=== PATIENT | female | born 1950 | race Caucasian/White ===

== ENCOUNTER 2020-08-14 13:58 | Emergency (ER) | payer OTHER ==
--- OUTSIDE RECORDS SUMMARY | 2020-08-14 14:01 | XMS REPORT | Continuity of Care Document ---
:1950 Author Organization [facility] t Address [address] [place] [address] Care Team Providers Name Role Phone Unavailable Unavailable Unavailable Problems Condition Condition Condition Status Onset Resolution Last Treating Co mments Source Name Details Category Date Date Treatment Clinician Date Essential Essential Problem Active 2020-0 [facility] hypertensi Hypertensi 2-26 da on on 00:00: Medical 00 Group Hypothyroi Hypothyroi Problem Active [facility] dis[facility] Hyperlipid Hyperlipid Problem Active [facility] emia [facility] Tobacco Tobacco Problem Active [facility] smoking Smoking da consumptio Consumptio Me dical n unknown n Unknown Grou p Insomnia Insomnia Problem Active [facility] Chronic Chronic Problem Active [facility] obstructiv Obstructiv da e lung e Lung Medical disease Disease Group Lesion of Lesion of Problem Active [facility] lip Lip [facility] Bladder Bladder Problem Active [facility] muscle Muscle da dysfunctio Dysfunctio Me dical n - n - Group overactive Overactive Vaginitis Vaginitis Problem Active [facility] Chronic Chronic Problem Active [facility] low back Low Back da pain Pain [facility] Pain in Pain in Problem Active [facility] right arm Right Arm [facility] Fatigue Fatigue Problem Active [facility] Abnormal Abnormal Problem Active [facility] weight Weight da loss [facility] Increased Increased Problem Active [facility] frequency Frequency da of of Medical urination Urination Grou p Lower Lower Problem Active [facility] abdominal Abdominal da pain [facility] Serum Serum Problem Active [facility] alkaline Alkaline da phosphatas Phosphatas Me dical e raised e Raised Group Abnormal Abnormal Problem Active [facility] cervical Cervical da Papanicola Papanicola Me dical ou smear ou Smear Group Allergies, Adverse Reactions, Alerts This patient has no known allergies or adverse reactions. Social History Smoking Status Start Date Stop Date Source Heavy Tobacco Smoker [facility] Medications Ordered Filled Start Stop Current Ordering Indication Dosage Frequency Signature Comments Components Source Medication Medication Date Date Medication? Clinician (SIG) Name Name cefuroxime cefuroxime No 1 Q12H cefuroxime [facility] axetil 500 axetil 500 axetil 500 da mg tablet mg tablet mg tablet Medical Take 1 Take 1 Take 1 Group tablet tablet tablet every 12 every 12 every 12 hours by hours by hours by oral route oral route oral route for 7 days. for 7 days. for 7 days. epipen epipen No epipen [facility] 2-selena 0.3 2-selena 0.3 2-selena 0.3 da mg/0.3ml mg/0.3ml mg/0.3ml Med ical soaj soaj soaj Group hydroxyzine hydroxyzine No hydroxyzin [facility] pamoate 50 pamoate 50 e pamoate da mg capsule mg capsule 50 mg Me dical TAKE ONE TAKE ONE capsule Grou p CAPSULE BY CAPSULE BY TAKE ONE MOUTH AT MOUTH AT CAPSULE BY BEDTIME BEDTIME MOUTH AT BEDTIME levothyroxi levothyroxi No levothyrox [facility] ne 100 mcg ne 100 mcg ine 100 da tablet tablet mcg tablet Medic al Group lisinopril/ lisinopril/ No lisinopril [facility] hydrochloro hydrochloro /hydrochlo da thiazide thiazide rothiazide M edical 20-12.5 mg 20-12.5 mg 20-12.5 mg Group tabs tabs tabs naproxen naproxen No naproxen [facility] 500 mg 500 mg 500 mg da tablet tablet tablet Medical Group pravastatin pravastatin No pravastati [facility] 40 mg 40 mg n 40 mg da tablet TAKE tablet TAKE tablet Medical 1 TABLET BY 1 TABLET BY TAKE 1 Group MOUTH EVERY MOUTH EVERY TABLET BY DAY DAY MOUTH EVERY DAY ProAir HFA ProAir HFA No ProAir HFA [facility] 90 90 90 da mcg/actuati mcg/actuati mcg/actuat Medical on aerosol on aerosol ion Shilpi up inhaler inhaler aerosol Inhale 1 Inhale 1 inhaler puff every puff every Inhale 1 6-8 hours 6-8 hours puff every by by 6-8 hours inhalation inhalation by route as route as inhalation directed directed route as for 30 for 30 directed days. days. for 30 days. Symbicort Symbicort No Symbicort [facility] 160 mcg-4.5 160 mcg-4.5 160 d a mcg/actuati mcg/actuati mcg-4.5 Medical on HFA on HFA mcg/actuat Group aerosol aerosol ion HFA inhaler inhaler aerosol INHALE 2 INHALE 2 inhaler PUFFS BY PUFFS BY INHALE 2 MOUTH TWICE MOUTH TWICE PUFFS BY A DAY A DAY MOUTH TWICE A DAY tramadol 50 tramadol 50 No tramadol [facility] mg tablet mg tablet 50 mg da Take 1 Take 1 tablet Medical tablet(s) tablet(s) Take 1 Shilpi up every 6 every 6 tablet(s) hours by hours by every 6 oral route oral route hours by as needed as needed oral route for 30 for 30 as needed days. days. for 30 days. Vesicare 10 Vesicare 10 No Vesicare [facility] mg tablet mg tablet 10 mg da TAKE 1 TAKE 1 tablet Medical TABLET BY TABLET BY TAKE 1 Shilpi up MOUTH EVERY MOUTH EVERY TABLET BY DAY DAY MOUTH EVERY DAY Vital Signs Vital Name Observation Time Observation Value Comments Source BP Diastolic 2019-08-10 00:00:00 80 mm[Hg] [facility] Height 2019-08-10 00:00:00 68 [facility]in_i] [facility] BMI (Body Mass 2019-08-10 00:00:00 21.6 kg/m2 [facility] Index) Group BP Systolic 2019-08-10 00:00:00 146 mm[Hg] [facility] Body Weight 2019-08-10 00:00:00 142 [lb_av] [facility] Procedures Procedure Date / Time Performed Performing Clinician [facility] e bone density 2019-08-10 00:00:00 [facility] De [facility] dical Group MAMMO, screening, 2019-08-10 00:00:00 [facility] bilateral Group Plan of Care Planned Activity Planned Date Details Comments Source Diagnostic Test 2019-08-10 fecal occult Alessandra De Los Santos dical Pending 00:00:00 blood, stool [code Group = fecal occult blood, stool] Diagnostic Test 2019-08-10 pap, LB + HPV Alessandra Magdaleno edical Pending 00:00:00 [code = pap, LB + Group HPV] Diagnostic Test 2019-08-10 culture ([facility] Pending 00:00:00 count), urine Group [code = culture (colony count), urine] Encounters Start End Encounter Admission Attending Care Care Encounter Source Date/Time Date/Time Type Type Clinicians Facility Department ID 2019-08-10 2019-08-10 [facility] [place] - [id number] M travis 00:00:00 00:00:00 [facility]: [address] [place] [address] OBGYN [address], [place] [address] , Ph. [phone] Results This patient has no known results.
[2020-08-14 14:51] LABS: Absolute Lymphocytes (CBC) 3.4 K/uL (0.7-4.9); Basophils % 1.1 % (0-1.3); Hematocrit 41.4 % (36.0-45.0); Lymphocytes % 36.6 % (15.3-44.8); MPV 8.7 fL (7.6-11.3); RBC Red Blood Cell Count 4.46 M/uL (3.86-4.86)
[2020-08-14 14:53] LABS: Protime INR 0.91
--- NOTE | 2020-08-14 15:01 | RAD REPORT ---
EXAM DESCRIPTION: RAD - Chest Single View - 08/14/2020 2:50 pm CLINICAL HISTORY: SOB COMPARISON: None TECHNIQUE: AP portable chest image was obtained 08/14/2020 2:50 pm . FINDINGS: Prominent interstitial pattern present most likely fibrotic change on this baseline study. Component of edema or infiltrate cannot be excluded on a baseline study. No consolidation or mass. H eart and vasculature are normal. No measurable pleural effusion and no pneumothorax. No acute bone fi nding. Could not right clavicle fracture noted. No acute aortic findings suspected. IMPRESSION: No peripheral mass or consolidation. Prominent interstitial pattern present probably chronic fibrosis. This could mask mild edema or infil trate.
[2020-08-14] MEDS ORDERED: LEVALBUTEROL 1.25 MG/3 ML NEB ONE (15:14)
[2020-08-14] MEDS ORDERED: METHYLPREDNISOLONE 125 MG INJ ONE (15:14)
[2020-08-14 15:15] LABS: ALT/SGPT 13 U/L (12-78); AST/SGOT 9 U/L (15-37); Alkaline Phosphatase 167 U/L (45-117); BUN Blood Urea Nitrogen 6 mg/dL (7-18); Bicarbonate 26 mmol/L (21-32); Bilirubin Direct < 0.1 mg/dL (0-0.2); Bilirubin Total 0.2 mg/dL (0.2-1.0); Glucose Level 72 mg/dL (74-106); Magnesium 2.3 mg/dL (1.8-2.4); NT PRO-BNP 276 pg/mL (<125); Protein, Total 6.5 g/dL (6.4-8.2); Sodium Level 142 mmol/L (136-145); Troponin (Emerg Dept Use Only) 0.02 ng/mL (0.0-0.045)
--- NOTE | 2020-08-14 16:15 | RAD REPORT ---
EXAM DESCRIPTION: CT - Chest For Pe Angio - 08/14/2020 3:57 pm CLINICAL HISTORY: SOB COMPARISON: Chest Single View dated 08/14/2020 TECHNIQUE: Dynamically enhanced 3 mm thick images of the chest were obtained during administration o f approximately 150mL Isovue 370 IV contrast. Coronal and oblique MIP reconstruction images were gene rated and reviewed. Exam utilizes a protocol to evaluate the pulmonary arterial tree. All CT scans are performed using dose optimization technique as appropriate and may include automated exposure control or mA/KV adjustment according to patient size. FINDINGS: No pulmonary emboli are identified. Far peripheral branch assessment is more limited due t o the amount of respiratory motion present. The aorta as imaged shows no acute or suspicious finding. No pericardial thickening or effusion. No mass or consolidation. Interstitial pattern is prominent at least in part due to motion. There is atelectasis in each posterior gutter. Interstitial edema or infiltrate cannot be excluded. No pleural effusion or pleural thickening. No mediastinal or hilar suspicious masses. No chest wall masses or abnormal axillary lymphadenopathy. IMPRESSION: No pulmonary emboli identified. Far peripheral branch assessment is limited due to motio n. No focal mass or consolidation. Interstitial pattern is prominent. This could be motion artifact, int erstitial edema, infiltrate or a combination.
[2020-08-14] MEDS ORDERED: MAGNESIUM SULFATE 1 gm IVPB 1 GM/100 ML BAG IV ONE (17:07)
--- NOTE | 2020-08-14 17:27 | ER ---
Nurse's Notes [facility] Name: Africa Jara Age: 70 yrs Sex: Female : 1950 Arrival Date: 08/14/2020 Time: 14:00 Bed 14 Private MD: Diagnosis: Chronic obstructive pulmonary disease with (acute) exacerbation Presentation: 08/14 14:01 Chief complaint: EMS states: SOB WITH COPD. Coronavirus screen: Client presents with at bp least one sign or symptom that may indicate coronavirus-19. Standard/surgical mask placed on the client. Provider contacted for isolation considerations. Ebola Screen: No symptoms or risks identified at this time. Initial Sepsis Screen: Does the patient meet any 2 criteria? HR > 90 bpm. No. Patient's initial sepsis screen is negative. Does the patient have a suspected source of infection? No. Patient's initial sepsis screen is negative. Risk Assessment: Do you want to hurt yourself or someone else? Patient reports no desire to harm self or others. Onset of symptoms was August 14, 2020. 14:01 Method Of Arrival: EMS: [facility] bp 14:01 Acuity: VANESA 3 bp Triage Assessment: 14:04 General: Appears in no apparent distress. comfortable, slender, Behavior is bp cooperative, appropriate for age, anxious. Pain: Denies pain. EENT: No deficits noted. Neuro: No deficits noted. Cardiovascular: Rhythm is sinus tachycardia. Respiratory: Reports shortness of breath Onset: The symptoms/episode began/occurred yesterday, the patient has mild shortness of breath. GI: No signs and/or symptoms were reported involving the gastrointestinal system. : No signs and/or symptoms were reported regarding the genitourinary system. Derm: No deficits noted. Musculoskeletal: No deficits noted. Historical: - Allergies: 14:04 No Known Allergies; bp - Home Meds: 14:04 Unable to obtain [Active]; bp - PMHx: 14:04 COPD; bp - Immunization history:: Adult Immunizations up to date. - Social history:: Smoking status: unknown. Screenin:04 Abuse screen: Denies threats or abuse. Denies injuries from another. Nutritional bp screening: No deficits noted. Tuberculosis screening: No symptoms or risk factors identified. Fall Risk None identified. Assessment: 14:04 General: SEE TRIAGE NOTE. bp 15:00 Reassessment: No changes from previously documented assessment. Patient and/or family bp updated on plan of care and expected duration. Pain level reassessed. Patient is alert, oriented x 3, equal unlabored respirations, skin warm/dry/pink. Cardiovascular: Rhythm is sinus rhythm. Respiratory: Airway is patent Respiratory effort is even, unlabored, Breath sounds are clear bilaterally. 17:01 Reassessment: Patient appears in no apparent distress at this time. No changes from bp previously documented assessment. Patient and/or family updated on plan of care and expected duration. Pain level reassessed. MAG INFUSING. 17:51 Reassessment: Patient appears in no apparent distress at this time. Patient is alert, ca1 oriented x 3, equal unlabored respirations, skin warm/dry/pink. Patient states feeling better. Patient states symptoms have improved. Vital Signs: 14:01 BP 120 / 79; Pulse 105; Resp 17; Temp 98; Pulse Ox 97% on R/A; bp 14:09 BP 104 / 50; Pulse 97; Resp 19; Pulse Ox 97% on R/A; bp 15:37 BP 99 / 56; Pulse 97; Resp 19; Pulse Ox 97% ; bp 17:01 BP 97 / 62; Pulse 105; Resp 24; Pulse Ox 96% ; bp 17:51 BP 103 / 71; Pulse 99; Resp 19 S; Pulse Ox 98% on R/A; ca1 ED Course: 14:00 Patient arrived in ED. bp 14:03 Triage completed. bp 14:03 Orlando Avendaño PA is PHCP. [facility] 14:03 Darnell Ayala MD is Attending Physician. [facility] 14:04 Patient has correct armband on for positive identification. Bed in low position. Call bp light in reach. Side rails up X2. 14:04 Maintain EMS IV. Dressing intact. Good blood return noted. Site clean \T\ dry. Gauge \T\ bp site: 20 GAUGE R AC. 14:08 Arm band placed on. bp 14:11 Matt Woodson, SERENA is Primary Nurse. bp 14:19 Warm blanket given. services clerk on. Pulse ox on. NIBP on. 5 14:19 EKG done, by ED staff, reviewed by Darnell Ayala MD. 5 14:49 XRAY Chest (1 view) In Process Unspecified. EDMS 15:57 Chest For PE Angio CT In Process Unspecified. EDMS 17:51 No provider procedures requiring assistance completed. IV discontinued, intact, ca1 bleeding controlled, No redness/swelling at site. Pressure dressing applied. Administered Medications: 14:50 Drug: SOLU-Medrol 125 mg Route: IVP; Site: right forearm; bp 16:33 Follow up: Response: No adverse reaction bp 14:50 Drug: Xopenex (3) 1.25 mg Route: Inhalation; bp 16:40 Drug: Magnesium Sulfate 1 grams Route: IVPB; Infused Over: 1 hrs; Site: right bp antecubital; 17:45 Follow up: Response: No adverse reaction; IV Status: Completed infusion; IV Intake: ca1 100ml Intake: 17:45 IV: 100ml; Total: 100ml. ca1 Outcome: 17:27 Discharge ordered by . jmm 17:51 Discharged to home ambulatory, with family. ca1 17:51 Condition: improved 17:51 Discharge instructions given to patient, Instructed on discharge instructions, follow up and referral plans. medication usage, Demonstrated understanding of instructions, follow-up care, medications, Prescriptions given X 3. 17:52 Patient left the ED. ca1 Signatures: Dispatcher [employer] EDMS Orlando Avendaño PA PA jmm Martinez, Maria mh5 Matt Woodson, RN RN Deepali Wesley RN RN ca1
--- NOTE | 2020-08-14 17:28 | EDPHYS ---
Physician Documentation [facility] Name: Africa Jara Age: 70 yrs Sex: Female : 1950 Arrival Date: 08/14/2020 Time: 14:00 Bed 14 Private MD: ED Physician Darnell Ayala HPI: 08/14 14:13 This 70 yrs old Female presents to ER via EMS with complaints of Shortness Of jmm Breath. 14:13 The patient has shortness of breath at rest. Onset: The symptoms/episode began/occurred jmm gradually, 2 day(s) ago. Duration: The symptoms are continuous. The patient's shortness of breath is aggravated by nothing, is alleviated by nothing. Associated signs and symptoms: Pertinent positives: non-productive cough, Pertinent negatives: chest pain, fever. This is a 70 year old female with a history of COPD that presents to the ED with complaints of ongoing SOB she attributes to COPD. Her home inhalers have been ineffective. Denies fever, chest pain.. Historical: - Allergies: 14:04 No Known Allergies; bp - Home Meds: 14:04 Unable to obtain [Active]; bp - PMHx: 14:04 COPD; bp - Immunization history:: Adult Immunizations up to date. - Social history:: Smoking status: unknown. ROS: 14:13 Constitutional: Negative for fever, chills, and weight loss, Cardiovascular: Negative jmm for chest pain, palpitations, and edema. 14:13 Respiratory: Positive for shortness of breath. 14:13 All other systems are negative. Exam: 14:13 Constitutional: This is a well developed, well nourished patient who is awake, alert, jmm and in no acute distress. Head/Face: atraumatic. Eyes: EOMI, no conjunctival erythema appreciated ENT: Moist Mucus Membranes Neck: Trachea midline, Supple Chest/axilla: Normal chest wall appearance and motion. 14:13 Abdomen/GI: Non distended, soft Back: Normal ROM Skin: General appearance color normal MS/ Extremity: Moves all extremities, no obvious deformities appreciated, no edema noted to the lower extremities Neuro: Awake and alert, normal gait 14:13 Cardiovascular: Rate: normal, Rhythm: regular. 14:13 Respiratory: the patient does not display signs of respiratory distress, Respirations: normal, Breath sounds: wheezing: that is mild, is scattered. Vital Signs: 14:01 BP 120 / 79; Pulse 105; Resp 17; Temp 98; Pulse Ox 97% on R/A; bp 14:09 BP 104 / 50; Pulse 97; Resp 19; Pulse Ox 97% on R/A; bp 15:37 BP 99 / 56; Pulse 97; Resp 19; Pulse Ox 97% ; bp 17:01 BP 97 / 62; Pulse 105; Resp 24; Pulse Ox 96% ; bp 17:51 BP 103 / 71; Pulse 99; Resp 19 S; Pulse Ox 98% on R/A; ca1 MDM: 14:28 Patient medically screened. [facility] 17:24 Data reviewed: vital signs, nurses notes. Counseling: I had a detailed discussion with melissa the patient and/or guardian regarding: the historical points, exam findings, and any diagnostic results supporting the discharge/admit diagnosis, lab results, radiology results, the need for outpatient follow up, to return to the emergency department if symptoms worsen or persist or if there are any questions or concerns that arise at home. ED course: Patient states feeling much better. Labs unremarkable. Patient is advised to follow up with pcp and otherwise given strict return precautions. Patient understood and agrees with the plan of care. . 08/14 14:13 Order name: Basic Metabolic Panel; Complete Time: 15:19 [facility] 08/14 14:13 Order name: CBC with Diff; Complete Time: 15:19 [facility] 08/14 14:13 Order name: LFT's; Complete Time: 15:19 [facility] 08/14 14:13 Order name: Magnesium; Complete Time: 15:19 [facility] 08/14 14:13 Order name: NT PRO-BNP; Complete Time: 15:19 [facility] 08/14 14:13 Order name: PT-INR; Complete Time: 15:19 [facility] 08/14 14:13 Order name: Troponin (emerg Dept Use Only); Complete Time: 15:19 [facility] 08/14 14:13 Order name: XRAY Chest (1 view); Complete Time: 15:19 [facility] 08/14 14:13 Order name: EKG; Complete Time: 14:13 [facility] 08/14 14:13 Order name: Cardiac monitoring; Complete Time: 14:16 [facility] 08/14 15:20 Order name: Chest For PE Angio CT; Complete Time: 16:22 [facility] 08/14 14:13 Order name: EKG - Nurse/Tech; Complete Time: 14:19 [facility] 08/14 14:13 Order name: IV Saline Lock; Complete Time: 15:13 [facility] 08/14 14:13 Order name: Labs collected and sent; Complete Time: 15:13 [facility] 08/14 14:13 Order name: O2 Per Protocol; Complete Time: 15:13 [facility] 08/14 14:13 Order name: O2 Sat Monitoring; Complete Time: 15:13 [facility] Administered Medications: 14:50 Drug: SOLU-Medrol 125 mg Route: IVP; Site: right forearm; bp 16:33 Follow up: Response: No adverse reaction bp 14:50 Drug: Xopenex (3) 1.25 mg Route: Inhalation; bp 16:40 Drug: Magnesium Sulfate 1 grams Route: IVPB; Infused Over: 1 hrs; Site: right bp antecubital; 17:45 Follow up: Response: No adverse reaction; IV Status: Completed infusion; IV Intake: ca1 100ml Disposition: 18:36 Co-signature as Attending Physician, Darnell Ayala MD. rn Disposition: 08/14/20 17:27 Discharged to Home. Impression: Chronic obstructive pulmonary disease with (acute) exacerbation. - Condition is Stable. - Discharge Instructions: Chronic Obstructive Pulmonary Disease Exacerbation. - Prescriptions for Prednisone 20 mg Oral Tablet - take 3 tablet by ORAL route once daily for 5 days; 15 tablet. Zithromax Z- Tristin 250 mg Oral Tablet - take 1 tablet by ORAL route as directed for 5 days Day 1 - take two (2) tablets one time. Day 2, 3, 4 , 5 take one (1) tablet once daily.; 6 tablet. Albuterol Sulfate 90 mcg/actuation - inhale 1-2 puff by INHALATION route every 4-6 hours; 1 Inhaler. - Medication Reconciliation Form, Thank You Letter, Antibiotic Education, Prescription Opioid Use form. - Follow up: Private Physician; When: 2 - 3 days; Reason: Recheck today's complaints, Continuance of care, Re-evaluation by your physician. Signatures: Dispatcher [employer] EDOrlando Gabriel PA PA [facility] Darnell Ayala MD MD rn Peltier, Brian RN RN Deepali Wesley RN RN ca1 Corrections: (The following items were deleted from the chart) 17:52 17:27 08/14/2020 17:27 Discharged to Home. Impression: Chronic obstructive pulmonary ca1 disease with (acute) exacerbation. Condition is Stable. Forms are Medication Reconciliation Form, Thank You Letter, Antibiotic Education, Prescription Opioid Use. Follow up: Private Physician; When: 2 - 3 days; Reason: Recheck today's complaints, Continuance of care, Re-evaluation by your physician. melissa
[2020-08-14 19:19] VITALS: TEMP 98
[2020-08-14 19:24] VITALS: BP 103/71; O2SAT 98
--- NOTE | 2020-08-15 22:28 | EKG ---
Test Date: 2020-08-14 Test Time: 14:27:04 Grinding Mill Operator: YONI MEASUREMENT RESULTS: Intervals: Rate: 87 LA: 152 QRSD: 78 QT: 380 QTc: 457 [place]: P: 59 LA: 152 QRS: 68 T: 56 INTERPRETIVE STATEMENTS: Normal sinus rhythm Normal ECG Compared to ECG 12/12/1997 07:06:00 T-wave abnormality no longer present Electronically Signed On 08-15-20 22:25:37 SENIOR SVP by Juan Crum
== END 2020-08-14 17:52 | disposition home or self-care (01) ==
LOC: ER 13:58
DX: J44.1 Chronic obstructive pulmonary disease with (acute) exacerbation (principal)
CPT/HCPCS: 96365; 93005; 85025; 80048; 36415; 83735; 85610; 80076; 84484; 83880; 71275; 71045; 96375; 99285; Q9967; J3475; J2930

== ENCOUNTER 2022-06-25 22:17 | Observation (INO) | payer OTHER ==
--- OUTSIDE RECORDS SUMMARY | 2022-06-25 22:32 | XMS REPORT | Continuity of Care Document ---
:1950 Author Organization [facility] t Address [address] [place] [address] [address]. [address] [place] [address] Care Team Providers Name Role Phone JAIME Attending Clinician Unavailable Timoteo Attending Clinician Unavailable Erin Attending Clinician Unavailable JAIME Admitting Clinician Unavailable Timoteo Admitting Clinician Unavailable Erin Admitting Clinician Unavailable Payers Payer Name Policy Type Policy Number Effective Date Expiration Date Brandyn VELASQUEZ (MEDICARE [id number] 2019 REPLACEMENT HMO) 00:00:00 [place] [id number] [place] [facility] [id number] 2013 [facility] 00:00:00 (MEDICAID HMO) [place]: [id number] 2017 [employer] 00:00:00 Problems Condition Condition Condition Status Onset Resolution Last Treating Co mments Source Name Details Category Date Date Treatment Clinician Date Essential Essential Problem Active [facility] hypertensi Hypertensi 2-26 da on [...] Date Stop Date Source Heavy Tobacco Smoker [facility] Medications Ordered Filled Start Stop Current Ordering Indication Dosage Frequency Signature Comments Components Source Medication Medication Date Date Medication? Clinician (SIG) Name Name nitrofurant nitrofurant No nitrofuran [place] oin oin toin da monohydrate monohydrate monohydrat Medical /macrocryst /macrocryst e/macrocry Group als 100 mg als 100 mg stals 100 capsule capsule mg capsule TAKE 1 TAKE 1 TAKE 1 CAPSULE BY CAPSULE BY CAPSULE BY MOUTH EVERY MOUTH EVERY MOUTH 12 HOURS 12 HOURS EVERY 12 FOR 7 DAYS FOR 7 DAYS HOURS FOR 7 DAYS pravastatin pravastatin No pravastati [facility] 40 mg 40 mg n 40 mg da tablet TAKE tablet TAKE tablet Medical 1 TABLET BY 1 TABLET BY TAKE 1 Group MOUTH EVERY MOUTH EVERY TABLET BY DAY DAY MOUTH EVERY DAY sertraline sertraline No sertraline [place] 25 mg 25 mg 25 mg da tablet TAKE tablet TAKE tablet Medical 1 TABLET BY 1 TABLET BY TAKE 1 Group MOUTH EVERY MOUTH EVERY TABLET BY DAY DAY MOUTH EVERY DAY Symbicort Symbicort No Symbicort [place] 160 mcg-4.5 [...] mg tablet mg tablet 50 mg da TAKE 1 TAKE 1 tablet Medical TABLET BY TABLET BY TAKE 1 Shilpi up MOUTH EVERY MOUTH EVERY TABLET BY 6 HOURS 6 HOURS MOUTH NEEDED FOR NEEDED FOR EVERY 6 PAIN PAIN HOURS NEEDED FOR PAIN albuterol albuterol No albuterol [place] sulfate HFA sulfate HFA sulfate da 90 90 HFA 90 Medical mcg/actuati mcg/actuati mcg/actuat Group on aerosol on aerosol ion inhaler inhaler aerosol INHALE 1 2 INHALE 1 2 inhaler PUFFS BY PUFFS BY INHALE 1 2 MOUTH EVERY MOUTH EVERY PUFFS BY 4 6 HOURS 4 6 HOURS MOUTH EVERY 4 6 HOURS doxepin 10 doxepin 10 No doxepin 10 [facility] mg capsule mg capsule mg capsule da TAKE 1 TAKE 1 TAKE 1 Medical CAPSULE BY CAPSULE BY CAPSULE BY Group MOUTH MOUTH MOUTH EVERYDAY AT EVERYDAY AT EVERYDAY BEDTIME BEDTIME AT BEDTIME epipen epipen No epipen [facility] 2-selena 0.3 2-selena 0.3 2-selena 0.3 da mg/0.3ml mg/0.3ml mg/0.3ml Med ical soaj soaj soaj Group ergocalcife ergocalcife No ergocalcif [place] rol rol cindi da (vitamin (vitamin (vitamin Med ical D2) 1,250 D2) 1,250 D2) 1,250 Group mcg (50,000 mcg (50,000 mcg unit) unit) (50,000 capsule capsule unit) TAKE 1 TAKE 1 capsule CAPSULE BY CAPSULE BY TAKE 1 MOUTH ONE MOUTH ONE CAPSULE BY TIME PER TIME PER MOUTH ONE WEEK WEEK TIME PER WEEK levothyroxi levothyroxi No levothyrox [place] ne 150 mcg ne 150 mcg ine 150 da tablet TAKE tablet TAKE mcg tablet Medical 1 TABLET BY 1 TABLET BY TAKE 1 Group MOUTH EVERY MOUTH EVERY TABLET BY DAY DAY MOUTH EVERY DAY loratadine loratadine No loratadine [facility] 10 mg 10 mg 10 mg da tablet TAKE tablet TAKE tablet Medical 1 TABLET BY 1 TABLET BY TAKE 1 Group MOUTH EVERY MOUTH EVERY TABLET BY DAY DAY MOUTH EVERY DAY Vital Signs Vital Name Observation Time Observation Value Comments Source BP Diastolic 2021-01-21 00:00:00 78 mm[Hg] [facility] Height 2021-01-21 00:00:00 68 [in_i] [facility] BMI (Body Mass 2021-01-21 00:00:00 21.6 kg/m2 [facility] Medical Index) Group BP Systolic 2021-01-21 00:00:00 136 mm[Hg] [facility] Body Weight 2021-01-21 00:00:00 141.8 [lb_av] [facility] BP Diastolic 2019-08-10 00:00:00 80 mm[Hg] [facility] Height 2019-08-10 00:00:00 68 [in_i] [facility] BMI (Body Mass 2019-08-10 00:00:00 21.6 kg/m2 [facility] Medical Index) Group BP Systolic 2019-08-10 00:00:00 146 mm[Hg] [facility] Body Weight 2019-08-10 00:00:00 142 [lb_av] [facility] Procedures Procedure Date / Time Performed Performing Clinician Sour e bone density 2019-08-10 00:00:00 [facility] MAMMO, screening, 2019-08-10 00:00:00 [facility] Plan of Care Planned Activity Planned Date Details Comments Source Instructions [facility] Encounters Start End Encounter Admission Attending Care Care Encounter Source Date/Time Date/Time Type Type Clinicians Facility Department ID 2021-12-27 2021-12-27 Outpatient [facility] 757 [facility] 03:10:00 03:10:00 HN 0715 [facility] 2021-01-21 2021-01-21 Outpatient Rut[facility]L [facility] 3316 [place] 03:37:00 03:37:00 0809 [facility] 2021-01-21 2021-01-21 Outpatient [facility] 3316 [place] 03:37:00 03:37:00 0810 [facility] 2021-01-21 2021-01-21 [facility] [place] - [id number] M at[facility] 00:00:00 00:00:00 DO Rasheed: [facility] [address] [facility] [address] [address] , Ph. [phone] 2021-01-09 2021-01-09 Outpatient [facility]L [facility] 3316 [place] 03:28:00 03:28:00 0728 [facility] 2021-01-09 2021-01-09 Outpatient [facility]L [facility] 3316 [place] 03:28:00 03:28:00 0806 [facility] Group 2020-05-02 2020-05-02 Outpatient [facility]L [facility] 3316 [place] 02:43:00 02:43:00 1118 [facility] 2019-08-11 2019-08-11 Outpatient [facility]L [facility] 3316 [place] 07:30:00 07:30:00 0227 [facility] 2019-08-11 2019-08-11 Outpatient [facility] 3316 [place] 07:30:00 07:30:00 0331 [facility] 2019-08-11 2019-08-11 Outpatient [facility]L [facility] 3316 [place] 07:30:00 07:30:00 0401 [facility] 2019-08-10 2019-08-10 Outpatient [facility]L [facility] 3316 [place] 04:36:00 04:36:00 0226 [facility] 2019-08-10 2019-08-10 [place] MM [place] - [id number] M at[facility] 00:00:00 00:00:00 Shahram Sol MD: [address] [place] [address] OBGYN [address] [address] , Ph. [phone] 2018-01-25 2018-01-25 Outpatient Brown_R [facility] [id number] [place] 11:14:00 11:14:00 0225 [facility] Results Test Description Test Time Test Comments Results Result Comments Source CBC W Auto Differential panel - Blood 2021-01-03 07:18:00 Test Item Value Reference Range Interpretation Comme nts white blood count (test code = white blood count) 19.8 K/uL 4.0- 11.5 H red blood count (test code = red blood count) 3.81 M/uL 3.80-5.2 0 hemoglobin (test code = hemoglobin) 11.1 g/dL 10.5-15.7 hematocrit (test code = hematocrit) 35.2 % 34.0-50.0 MCV [Entitic volume] (test code = 41266-1) 92.4 fL 86-100 mean corpuscular hemoglobin (test code = mean corpuscular 29.1 pg 26.2-33.4 hemoglobin) mean corpuscular HGB conc (test code = mean corpuscular HGB 31.5 g/ dL 30-34 conc) red cell distribution width (test code = red cell 13.4 % 12.0 -15.5 distribution width) platelet count (test code = platelet count) 237 K/uL 165-450 mean platelet volume (test code = mean platelet volume) 10.6 fL 9.4-12.6 Segmented neutrophils/100 leukocytes in Blood (test code = 77.4 % 44.4-80.1 45927-2) Immature granulocytes [#/volume] in Blood (test code = 0.1 K/uL 0.0-0.03 H 68982-9) lymphocyte% (test code = lymphocyte%) 14.5 % 10.0-50.0 mono % (test code = mono %) 7.1 % 3.6-12.0 eos % (test code = eos %) 0.2 % 0.0-5.4 Basophils/100 leukocytes in Unspecified specimen (test code 0.2 % 0.1-1.2 = 46743-8) Band form neutrophils [#/volume] in Blood (test code = 15.30 K/uL 1.56-6.13 H 78038-2) Lymphocytes [#/volume] in Unspecified specimen by Automated 2.9 K/u L 1.18-3.74 count (test code = 21946-4) mono # (test code = mono #) 1.41 K/uL 0.24-0.86 H eos # (test code = eos #) 0.04 K/uL 0.04-0.36 basophil # (test code = basophil #) 0.03 K/uL 0.01-0.08 NRBC% (test code = NRBC%) 0 /100 WBC 0-0.2 NRBC# (test code = NRBC#) 0 K/uL [facility], method unspecified - [id number] 07:18:00NeutrophilsBandLymphocyteAtypical LymphMonocyteEosinophilBasophilMetamyelocyteMyelocytePromyelocyteBlastsNucleated Red Blood CellAbs Neutrophil Count (Man)Abs Lymph Count (Man)Abs Monocyte Count (Man)Abs Eosinophil Count (Man)Abs Basophil Count (Man)Platelet EstimatePlatelet MorphologyHypochromasiaPoik ilocytosisAnisocytosisMicrocytosisMacrocytosisTarget CellsToxic GranulationSmudge CellsGiant PlateletsMaTrace Regional HospitalBasic metabolic 2000 panel - Serum or [id number] 07:18:00 Test Item Value Reference Range Interpretation Comments Glucose [Mass/volume] in Serum or 100 mg/dL 82-115 Plasma (test code = 2345-7) Urea nitrogen [Mass/volume] in 9 mg/dL 8-23 Serum or Plasma (test code = 3094-0) osmolality calculated,serum (test 265 mOsm/kg 280-300 L code = osmolality calculated,serum) creatinine (test code = 0.6 mg/dL 0.50-0.90 creatinine) glomerular filtration rate (test >60.00 code = glomerular filtration rate) Urea nitrogen/Creatinine [Mass 15.0 12-20 Ratio] in Serum or Plasma (test code = 3097-3) sodium level (test code = sodium 133 mmol/L 135-145 L level) potassium level (test code = 3.6 mmol/L 3.5-5.2 potassium level) chloride level (test code = 105 mmol/L 98-108 chloride level) CO2 (test code = CO2) 22 mmol/L 21-32 anion gap (test code = anion gap) 9.6 mEq/L 12-20 L calcium level (test code = 8.5 mg/dL 8.8-10.2 L calcium level) [facility] SystemHepatic function 2000 panel - Serum or [id number] 07:18:00 Test Item Value Reference Range Interpretation Comments total protein (test code = total 5.6 g/dL 6.6-8.7 L protein) albumin (test code = albumin) 2.6 g/dL 3.5-5.2 L bilirubin,total (test code = 0.5 mg/dL 0.0-1.2 bilirubin,total) Bilirubin.direct [Mass/volume] in <0.20 0.0-0.3 Serum or Plasma (test code = 1968-7) AST/SGOT (test code = AST/SGOT) 38 U/L 15-32 H Alanine aminotransferase [Enzymatic 21 U/L 0-33 activity/volume] in Serum or Plasma (test code = 1742-6) Alkaline phosphatase [Enzymatic 130 U/L 35-105 H activity/volume] in Serum or Plasma (test code = 6768-6) [facility] [id number] 09:53:00Results [facility] SystemBacteria identified in Sputum by [id number] 09:10:00Bacteria [facility]xx [facility], [id number] 09:10:00 Test Item Value Reference Range Interpretation Comments Gentamicin [Susceptibility] by Minimum <2 inhibitory concentration (FREDI) (test code = 267-5) Ampicillin [Susceptibility] by Minimum >16 inhibitory concentration (FREDI) (test code = 28-1) ceFAZolin [Susceptibility] by Minimum <2 inhibitory concentration (FREDI) (test code = 76-0) Trimethoprim+Sulfamethoxazole =2/38 [Susceptibility] by Minimum inhibitory concentration (FREDI) (test code = 516-5) Tetracycline [Susceptibility] by <4 Minimum inhibitory concentration (FREDI) (test code = 496-0) Amoxicillin+Clavulanate =8/4 [Susceptibility] by Minimum inhibitory concentration (FREDI) (test code = 20-8) Tobramycin [Susceptibility] by Minimum <4 inhibitory concentration (FREDI) (test code = 508-2) Nitrofurantoin [Susceptibility] by <32 Minimum inhibitory concentration (FREDI) (test code = 363-2) Cefotaxime [Susceptibility] by Minimum <2 inhibitory concentration (FREDI) (test code = 108-1) Cefepime [Susceptibility] by Minimum <8 inhibitory concentration (FREDI) (test code = 6644-9) levoFLOXacin [Susceptibility] by <2 Minimum inhibitory concentration (FREDI) (test code = 56106-2) Piperacillin+Tazobactam <16 [Susceptibility] by Minimum inhibitory concentration (FREDI) (test code = 412-7) cefTAZidime [Susceptibility] by Minimum <1 inhibitory concentration (FREDI) (test code = 133-9) cefTRIAXone [Susceptibility] by Minimum <1 inhibitory concentration (FREDI) (test code = 141-2) Ciprofloxacin [Susceptibility] by <1 Minimum inhibitory concentration (FREDI) (test code = 185-9) Imipenem [Susceptibility] by Minimum <1 inhibitory concentration (FREDI) (test code = 279-0) Ampicillin+Sulbactam [Susceptibility] =8/4 by Minimum inhibitory concentration (FREDI) (test code = 32-3) Ertapenem [Susceptibility] by Minimum <0.5 inhibitory concentration (FREDI) (test code = 27615-3) Aztreonam [Susceptibility] by Minimum <4 inhibitory concentration (FREDI) (test code = 44-8) Cefuroxime [Susceptibility] by Minimum <4 inhibitory concentration (FREDI) (test code = 95395-7) [facility] W Auto Differential panel - [id number] 07:11:00 Test Item Value Reference Range Interpretation Comments white blood count (test 22.2 K/uL 4.0-11.5 code = white blood count) red blood count (test code 4.25 M/uL 3.80-5.20 = red blood count) hemoglobin (test code = 12.5 g/dL 10.5-15.7 hemoglobin) hematocrit (test code = 38.8 % 34.0-50.0 hematocrit) MCV [Entitic volume] (test 91.3 fL 86-100 code = 78005-1) mean corpuscular hemoglobin 29.4 pg 26.2-33.4 (test code = mean corpuscular hemoglobin) mean corpuscular HGB conc 32.2 g/dL 30-34 (test code = mean corpuscular HGB conc) red cell distribution width 13.3 % 12.0-15.5 (test code = red cell distribution width) platelet count (test code = 252 K/uL 165-450 platelet count) mean platelet volume (test 10.0 fL 9.4-12.6 code = mean platelet volume) Segmented neutrophils/100 77.6 % 44.4-80.1 leukocytes in Blood (test code = 28423-2) Immature granulocytes 0.2 K/uL 0.0-0.03 H [#/volume] in Blood (test code = 59489-7) lymphocyte% (test code = 12.4 % 10.0-50.0 lymphocyte%) mono % (test code = mono %) 8.9 % 3.6-12.0 eos % (test code = eos %) 0.1 % 0.0-5.4 Basophils/100 leukocytes in 0.3 % 0.1-1.2 Unspecified specimen (test code = 97547-7) Band form neutrophils 17.21 K/uL 1.56-6.13 H [#/volume] in Blood (test code = 31789-0) Lymphocytes [#/volume] in 2.8 K/uL 1.18-3.74 Unspecified specimen by Automated count (test code = 89292-9) mono # (test code = mono #) 1.98 K/uL 0.24-0.86 H eos # (test code = eos #) 0.02 K/uL 0.04-0.36 L basophil # (test code = 0.06 K/uL 0.01-0.08 basophil #) NRBC% (test code = NRBC%) 0 /100 WBC 0-0.2 NRBC# (test code = NRBC#) 0 K/uL Platelet morphology finding normal RBC morph. normal RBC. [Identifier] in Blood (test code = 83870-9) [facility] SystemDifferent[facility] panel, method unspecified - [id number] 07:11:00 Test Item Value Reference Range Interpretation Comments Neutrophils [#/volume] in Blood by 82 % 37.0-80.0 H Automated count (test code = 751-8) Band form neutrophils/100 2 % 0-3 leukocytes in Blood by Manual count (test code = 764-1) lymphocyte (test code = 12 % 10-50 lymphocyte) atypical lymph (test code = 0 % atypical lymph) Monocytes [#/volume] in Blood by 4 % 0-12 Manual count (test code = 743-5) eosinophil (test code = 0 % 0-7 eosinophil) Basophils/100 leukocytes in 0 % 0-3 Unspecified specimen by Manual count (test code = 38281-2) metamyelocyte (test code = metamyelocyte) myelocyte (test code = myelocyte) promyelocyte (test code = promyelocyte) blasts (test code = blasts) nucleated red blood cell (test code = nucleated red blood cell) abs neutrophil count (man) (test 18.60 K/uL 1.56-6.13 H code = abs neutrophil count (man)) abs lymph count (man) (test code = 2.60 K/uL 1.32-3.57 abs lymph count (man)) abs monocyte count (man) (test 0.80 K/uL 0.24-0.86 code = abs monocyte count (man)) abs eosinophil count (man) (test 0.00 K/uL 0.04-0.36 L code = abs eosinophil count (man)) abs basophil count (man) (test 0.00 K/uL 0.01-0.08 L code = abs basophil count (man)) Platelets [#/volume] in Blood by adequate normal Automated count (test code = 777-3) poikilocytosis (test code = poikilocytosis) Anisocytosis [Presence] in Blood (test code = 72783-7) Macrocytes [Presence] in Blood (test code = 57683-5) Toxic granules [Presence] in Blood by Light microscopy (test code = 803-7) Smudge cells [Presence] in Blood by Light microscopy (test code = 7798-2) Giant platelets [Presence] in Blood by Light microscopy (test code = 5908-9) [facility] metabolic 2000 panel - Serum or [id number] 07:11:00 Test Item Value Reference Range Interpretation Comments Glucose [Mass/volume] in Serum or 101 mg/dL 82-115 Plasma (test code = 2345-7) Urea nitrogen [Mass/volume] in 8 mg/dL 8-23 Serum or Plasma (test code = 3094-0) osmolality calculated,serum (test 270 mOsm/kg 280-300 L code = osmolality calculated,serum) creatinine (test code = 0.7 mg/dL 0.50-0.90 creatinine) glomerular filtration rate (test >60.00 code = glomerular filtration rate) Urea nitrogen/Creatinine [Mass 11.4 12-20 L Ratio] in Serum or Plasma (test code = 3097-3) sodium level (test code = sodium 136 mmol/L 135-145 level) potassium level (test code = 4.2 mmol/L 3.5-5.2 potassium level) chloride level (test code = 106 mmol/L 98-108 chloride level) CO2 (test code = CO2) 21 mmol/L 21-32 anion gap (test code = anion gap) 13.2 mEq/L 12-20 calcium level (test code = 8.5 mg/dL 8.8-10.2 L calcium level) [facility] function 2000 panel - Serum or [id number] 07:11:00 Test Item Value Reference Range Interpretation Comments total protein (test code = total 5.7 g/dL 6.6-8.7 L protein) albumin (test code = albumin) 2.9 g/dL 3.5-5.2 L bilirubin,total (test code = 0.8 mg/dL 0.0-1.2 bilirubin,total) Bilirubin.direct [Mass/volume] in 0.28 mg/dL 0.0-0.3 Serum or Plasma (test code = 1968-7) AST/SGOT (test code = AST/SGOT) 14 U/L 15-32 L Alanine aminotransferase 6 U/L 0-33 [Enzymatic activity/volume] in Serum or Plasma (test code = 1742-6) Alkaline phosphatase [Enzymatic 138 U/L 35-105 H activity/volume] in Serum or Plasma (test code = 6768-6) [facility] SystemUrinalysis complete panel - [id number] 09:56:00 Test Item Value Reference Range Interpretation Comments Color of Urine by Auto (test yellow code = 86499-6) Appearance of Urine (test code clear clear = 5767-9) Glucose [Presence] in Urine by negative negative Automated test strip (test code = 16700-9) Bilirubin.total [Mass/volume] negative negative in Urine (test code = 1977-) Ketones [Mass/volume] in Urine =2 negative H by Automated test strip (test code = 25373-1) Specific gravity of Urine by 1.029 1.003-1.030 Automated test strip (test code = 21897-4) blood urine (test code = blood negative negative urine) pH of Urine (test code = 5.500 5-9 2756-5) protein urine (UA) (test code = trace negative protein urine (UA)) Urobilinogen [Presence] in normal 0.2-1.0 Urine (test code = 70140-1) Nitrite [Presence] in Urine by negative negative Test strip (test code = 5802-4) Leukocyte esterase [Presence] negative negative in Urine by Automated test strip (test code = 24360-8) Erythrocytes [#/volume] in =1-5 0-5 Urine by Automated count (test code = 798-9) Leukocytes [#/area] in Urine =1-5 0-5 sediment by Automated count (test code = 85409-3) Epithelial cells [Presence] in =1-5 0-5 Urine sediment by Light microscopy (test code = 66234-0) Bacteria identified in Urine by none detected none detect Culture (test code = 630-4) Casts [#/area] in Urine =2-5 none detect sediment by Automated count (test code = 28563-9) urine culture added? (test code no = urine culture added?) [facility] W Auto Differential panel - [id number] 03:51:00 Test Item Value Reference Range Interpretation Comments white blood count (test code = 18.3 K/uL 4.0-11.5 H white blood count) red blood count (test code = red 4.62 M/uL 3.80-5.20 blood count) hemoglobin (test code = 13.8 g/dL 10.5-15.7 hemoglobin) hematocrit (test code = 41.8 % 34.0-50.0 hematocrit) MCV [Entitic volume] (test code = 90.5 fL 86-100 98316-2) mean corpuscular hemoglobin (test 29.9 pg 26.2-33.4 code = mean corpuscular hemoglobin) mean corpuscular HGB conc (test 33.0 g/dL 30-34 code = mean corpuscular HGB conc) red cell distribution width (test 13.2 % 12.0-15.5 code = red cell distribution width) platelet count (test code = 279 K/uL 165-450 platelet count) mean platelet volume (test code = 10.0 fL 9.4-12.6 mean platelet volume) Segmented neutrophils/100 74.4 % 44.4-80.1 leukocytes in Blood (test code = 51952-3) Immature granulocytes [#/volume] 0.1 K/uL 0.0-0.03 H in Blood (test code = 48117-4) lymphocyte% (test code = 16.6 % 10.0-50.0 lymphocyte%) mono % (test code = mono %) 8.1 % 3.6-12.0 eos % (test code = eos %) 0.2 % 0.0-5.4 Basophils/100 leukocytes in 0.3 % 0.1-1.2 Unspecified specimen (test code = 68529-6) Band form neutrophils [#/volume] 13.64 K/uL 1.56-6.13 H in Blood (test code = 23293-9) Lymphocytes [#/volume] in 3.1 K/uL 1.18-3.74 Unspecified specimen by Automated count (test code = 18240-9) mono # (test code = mono #) 1.48 K/uL 0.24-0.86 H eos # (test code = eos #) 0.04 K/uL 0.04-0.36 basophil # (test code = basophil 0.05 K/uL 0.01-0.08 #) NRBC% (test code = NRBC%) 0 /100 WBC 0-0.2 NRBC# (test code = NRBC#) 0 K/uL [facility]Different[facility], method unspecified - [id number] 03:51:00NeutrophilsBandLymphocyteAtypical LymphMonocyteEosinophilBasophilMetamyelocyteMyelocytePromyelocyteBlastsNucleated Red Blood CellAbs Neutrophil Count (Man)Abs Lymph Count (Man)Abs Monocyte Count (Man)Abs Eosinophil Count (Man)Abs Basophil Count (Man)Platelet EstimatePlatelet MorphologyPoikilocytosisAnisocytosisMacrocytosisToxic GranulationParkwood [facility] System
[2022-06-25] MEDS ORDERED: METHYLPREDNISOLONE 125 MG INJ ONE (22:53)
[2022-06-25] MEDS ORDERED: LEVALBUTEROL 1.25 MG/3 ML NEB ONE (22:54)
[2022-06-25 23:32] LABS: Absolute Lymphocytes (CBC) 3.6 K/uL (0.7-4.9); Hematocrit 43.8 % (36.0-45.0); Lymphocytes % 32.2 % (15.3-44.8); MPV 9.1 fL (7.6-11.3); RBC Red Blood Cell Count 4.76 M/uL (3.86-4.86)
[2022-06-25 23:43] LABS: Potassium 4.1 mmol/L (3.5-5.1); Troponin High Sensitivity 36.4 pg/mL (<58.9)
[2022-06-26 00:07] LABS: SARS-COV-2 RT PCR NEGATIVE (NEGATIVE)
[2022-06-26 01:27] LABS: Urine Bacteria None Seen /HPF (<20); Urine RBC <5 /HPF (None Seen)
--- NOTE | 2022-06-26 01:50 | EDPHYS ---
Physician Documentation [facility] Name: Africa Jara Age: 71 yrs Sex: Female : 1950 Arrival Date: 06/25/2022 Time: 22:20 Bed 19 Private MD: ED Physician Darnell Ayala HPI: 06/25 22:22 This 71 yrs old Female presents to ER via Unassigned with complaints of sob. rn 22:22 The patient has shortness of breath at rest, with light activity. Onset: The rn symptoms/episode began/occurred 2 hour(s) ago. Duration: The symptoms are continuous, but are steadily getting better. The patient's shortness of breath is alleviated by application of supplemental oxygen. The patient's shortness of breath is alleviated by. Associated signs and symptoms: Pertinent positives: non-productive cough, Pertinent negatives: chest pain, fever, hemoptysis. Severity of symptoms: At their worst the symptoms were moderate in the emergency department the symptoms have improved. The patient has experienced similar episodes in the past. Pt reports sob, began 2 hours prior to arrival, hadn't taken her anxiety medication, feels better after supplemental oxygen at home, no intervention by EMS and feels better. NO chest pain. . Historical: - Allergies: 22:33 No Known Allergies; bb - Home Meds: 22:33 lisinopril hydrochlorthiazide 20-12.5 daily [Active]; tramadol 100 mg Oral tab 1 tab bb every 4 hours [Active]; inhalers [Active]; - PMHx: 22:33 COPD; bb - PSHx: 22:35 Cholecystectomy; bb - Immunization history:: Client reports having NOT received the Covid vaccine. - Social history:: Smoking status: Patient reports the use of cigarette tobacco products. - Family history:: not pertinent. - Hospitalizations: : No recent hospitalization is reported. ROS: 22:22 Constitutional: Negative for fever, chills, and weight loss, Eyes: Negative for injury, rn pain, redness, and discharge, Neck: Negative for injury, pain, and swelling, Cardiovascular: Negative for chest pain, palpitations, and edema, Respiratory: + sob and cough Abdomen/GI: Negative for abdominal pain, nausea, vomiting, diarrhea, and constipation, MS/Extremity: Negative for injury and deformity, Skin: Negative for injury, rash, and discoloration, Neuro: Negative for headache, weakness, numbness, tingling, and seizure. Exam: 22:22 Constitutional: This is a well developed, well nourished patient who is awake, alert, rn and in no acute distress. Head/Face: Normocephalic, atraumatic. Cardiovascular: Regular rate and rhythm . No pulse deficits. Respiratory: Faint wheezing bilaterally. No increased work of breathing, no retractions or nasal flaring. Abdomen/GI: soft, non-tender Skin: Warm, dry MS/ Extremity: Pulses equal, no cyanosis. Neuro: Awake and alert, GCS 15 23:58 ECG was reviewed by the Attending Physician. rn Vital Signs: 22:32 BP 153 / 81; Pulse 91; Resp 36 S; Temp 98(O); Pulse Ox 97% on R/A; Weight 68.04 kg (R); bb Height 5 ft. 7 in. (170.18 cm) (R); 23:22 BP 108 / 63; Pulse 98; Resp 30 S; Pulse Ox 99% on R/A; aa9 22:32 Body Mass Index 23.49 (68.04 kg, 170.18 cm) bb MDM: 22:20 Patient medically screened. rn 23:40 Independent interpretation of the following test(s) in the Emergency Department X-Ray: rn My interpretation is CXR neg for pneumonia/pneumothorax. . 06/26 01:42 Differential diagnosis: Anemia Anxiety Reaction Bronchitis Chronic Obstructive rn Pulmonary Disease Myocardial Infarction pneumonia, Pneumothorax pulmonary edema, Pulmonary Embolism reactive airway disease. Data reviewed: vital signs, nurses notes. 01:43 Data reviewed: lab test result(s), EKG, radiologic studies, CT scan, plain films, and rn as a result, I will admit patient. Management of patient was discussed with the following: Hospitalist: Discussed case with hospitalist and will obs for further care. . Care significantly affected by the following chronic conditions: Chronic Obstructive Pulmonary Disease. Counseling: I had a detailed discussion with the patient and/or guardian regarding: the historical points, exam findings, and any diagnostic results supporting the discharge/admit diagnosis, lab results, radiology results, the need for further work-up and treatment in the hospital. Response to treatment: the patient's symptoms have mildly improved after treatment, and as a result, I will admit patient. ED course: Pt reports some improvement in breathing, but still tachypneic at 30 breaths/minute, oxygen dipped to 89% on RA, patient not on oxygen at home, only has nebulizer. CT PE neg. Discussed case with hospitalist and will obs for further care. . 06/25 22:21 Order name: BMP; Complete Time: 23:54 rn 06/25 22:21 Order name: Blood Culture Adult (2) rn 06/25 22:21 Order name: CBC with Diff; Complete Time: 23:54 rn 06/25 22:21 Order name: NT PRO-BNP; Complete Time: 23:54 rn 06/25 22:21 Order name: Troponin HS; Complete Time: 23:54 rn 06/25 22:21 Order name: Urine Microscopic Only; Complete Time: 01:30 rn 06/25 22:21 Order name: XRAY CXR (1 view) rn 06/25 22:21 Order name: EKG; Complete Time: 22:22 rn 06/25 22:21 Order name: Cardiac monitoring; Complete Time: 23:07 rn 06/25 22:21 Order name: COVID-19/FLU A+B; Complete Time: 00:29 rn 06/25 23:55 Order name: CT Chest For PE Angio rn 06/26 01:58 Order name: Urine Dipstick-Ancillary; Complete Time: 02:09 EDVT 06/25 22:21 Order name: EKG - Nurse/Tech; Complete Time: 23:55 rn 06/25 22:21 Order name: IV Saline Lock; Complete Time: 23:07 rn 06/25 22:21 Order name: Labs collected and sent; Complete Time: 23:07 rn 06/25 22:21 Order name: O2 Per Protocol; Complete Time: 23:07 rn 06/25 22:21 Order name: O2 Sat Monitoring; Complete Time: 23:07 rn 06/25 22:21 Order name: Urine Dipstick-Ancillary (obtain specimen); Complete Time: 02:24 rn EC/11 23:58 Rate is 110 beats/min. Rhythm is regular. Right axis deviation noted. QRS is positive rn in lead aVF and negative in lead I. NC interval is normal. QRS interval is normal. QT interval is normal. No Q waves. T waves are Normal. No ST changes noted. Clinical impression: Sinus tachycardia. Interpreted by me. Reviewed by me. Administered Medications: 23:21 Drug: SOLU-Medrol (methylPrednisoLONE) 125 mg Route: IVP; Site: right antecubital; aa9 23:55 Follow up: Response: No adverse reaction aa9 23:21 Drug: Xopenex (levalbuterol) (3) 1.25 mg Route: Inhalation; aa9 23:55 Follow up: Response: No adverse reaction aa9 Disposition Summary: 06/26/22 01:49 Hospitalization Ordered Hospitalization Status: Observation rn Provider: Guzman Smith rn Condition: Stable rn Problem: an acute exacerbation rn Symptoms: have improved rn Bed/Room Type: Standard rn Location: Telemetry/MedSurg (observation)(06/26/22 07:25) em1 Room Assignment: [facility](06/26/22 07:25) em1 Diagnosis - COPD/ Chronic obstructive pulmonary disease with (acute) exacerbation rn Forms: - Medication Reconciliation Form rn - SBAR form rn Signatures: Dispatcher [employer] EDNicole Eduardo RN RN Darnell Pinedo MD MD rn Martinez, Eric em1 Yolanda Hawkins RN RN cg Avalos, Aylin, RN RN aa9 Nicole Varela, PA-Kalina PA-C sb4 Corrections: (The following items were deleted from the chart) 06/26 03:34 01:49 Telemetry/MedSurg (observation) rn cg 03:34 01:49 rn cg 07:25 03:34 [facility] ER HOLD cg em1 07:25 03:34 ERHOLD- cg em1
--- NOTE | 2022-06-26 01:50 | ER ---
Nurse's Notes [facility] Name: Africa Jara Age: 71 yrs Sex: Female : 1950 Arrival Date: 06/25/2022 Time: 22:20 Bed 19 Private MD: Diagnosis: COPD/ Chronic obstructive pulmonary disease with (acute) exacerbation Presentation: 06/25 22:32 Chief complaint: EMS states: they were toned out for report of pt with difficulty bb breathing history of COPD. Coronavirus screen: Client presents with at least one sign or symptom that may indicate coronavirus-19. Ebola Screen: No symptoms or risks identified at this time. Initial Sepsis Screen: Does the patient meet any 2 criteria? No. Patient's initial sepsis screen is negative. Does the patient have a suspected source of infection? No. Patient's initial sepsis screen is negative. Risk Assessment: Do you want to hurt yourself or someone else? Patient reports no desire to harm self or others. Onset of symptoms was June 25, 2022. 22:32 Method Of Arrival: EMS: [facility] bb 22:32 Acuity: VANESA 3 bb 22:38 Note pt finished antibiotics for UTI last night. bb Historical: - Allergies: 22:33 No Known Allergies; bb - Home Meds: 22:33 lisinopril hydrochlorthiazide 20-12.5 daily [Active]; tramadol 100 mg Oral tab 1 tab bb every 4 hours [Active]; inhalers [Active]; - PMHx: 22:33 COPD; bb - PSHx: 22:35 Cholecystectomy; bb - Immunization history:: Client reports having NOT received the Covid vaccine. - Social history:: Smoking status: Patient reports the use of cigarette tobacco products. - Family history:: not pertinent. - Hospitalizations: : No recent hospitalization is reported. Screenin/12 00:06 [facility] ED Fall Risk Assessment (Adult) History of falling in the last 3 months, aa9 including since admission No falls in past 3 months (0 pts) Confusion or Disorientation No (0 pts) Intoxicated or Sedated No (0 pts) Impaired Gait No (0 pts) Mobility Assist Device Used No (0 pt) Altered Elimination No (0 pt) Score/Fall Risk Level 0 - 2 = Low Risk. Abuse screen: Denies threats or abuse. Denies injuries from another. Nutritional screening: No deficits noted. Tuberculosis screening: No symptoms or risk factors identified. Assessment: 06/25 23:22 General: Appears in no apparent distress. Behavior is calm, cooperative, appropriate aa9 for age. Pain: Denies pain. Neuro: Level of Consciousness is awake, alert, obeys commands, Oriented to person, place, time, situation. Cardiovascular: Patient's skin is warm and dry. Respiratory: Airway is patent Respiratory effort is even, unlabored, Respiratory pattern is tachypnea. GI: No signs and/or symptoms were reported involving the gastrointestinal system. : No signs and/or symptoms were reported regarding the genitourinary system. Vital Signs: 22:32 BP 153 / 81; Pulse 91; Resp 36 S; Temp 98(O); Pulse Ox 97% on R/A; Weight 68.04 kg (R); bb Height 5 ft. 7 in. (170.18 cm) (R); 23:22 BP 108 / 63; Pulse 98; Resp 30 S; Pulse Ox 99% on R/A; aa9 22:32 Body Mass Index 23.49 (68.04 kg, 170.18 cm) bb ED Course: 22:20 Patient arrived in ED. rn 22:20 Darnell Ayala MD is Attending Physician. rn 22:33 Triage completed. bb 22:35 Arm band placed on Patient placed in an exam room, on a stretcher, on pay station attendant, bb on pulse oximetry. 22:44 Monika Garcia, SERENA is Primary Nurse. aa9 22:56 XRAY CXR (1 view) In Process Unspecified. EDMS 23:07 COVID-19/FLU A+B Sent. aa9 06/26 00:42 CT Chest For PE Angio In Process Unspecified. EDMS 00:45 Blood Culture Adult (2) Sent. aa9 01:17 Assisted to bedside commode. aa9 01:18 Urine Microscopic Only Sent. aa9 01:48 Guzman Smith is Hospitalizing Provider. rn 04:05 No provider procedures requiring assistance completed. Patient admitted, IV remains in aa9 place. 04:06 Patient has correct armband on for positive identification. Bed in low position. Call aa9 light in reach. Side rails up X2. 07:33 Primary Nurse role handed off by Monika Garcia, RN bp 07:33 Chintan, Matt, RN is Primary Nurse. bp Administered Medications: 06/25 23:21 Drug: SOLU-Medrol (methylPrednisoLONE) 125 mg Route: IVP; Site: right antecubital; aa9 23:55 Follow up: Response: No adverse reaction aa9 23:21 Drug: Xopenex (levalbuterol) (3) 1.25 mg Route: Inhalation; aa9 23:55 Follow up: Response: No adverse reaction aa9 Medication: 06/26 04:06 VIS not applicable for this client. aa9 Outcome: 01:49 Decision to Hospitalize by Provider. rn 04:05 Admitted to ER Hold. Please see [facility] for further documentation. aa9 04:05 Condition: stable 04:05 Instructed on the need for admit. 09:17 Patient left the ED. ld1 Signatures: Dispatcher [employer] EDNicole Eduardo RN RN bb Nieto, Roman, MD MD rn Peltier, Brian, RN RN bp Dibbern, Lauren, RN RN ld1 Monika Garcia RN RN aa9
[2022-06-26 01:58] LABS: Urine Blood Negative (Negative); Urine Glucose Negative (Negative); Urine Protein Negative (Negative); Urine pH 5.5 (5.0-7.0)
--- NOTE | 2022-06-26 02:33 | P.HP ---
Certification for Inpatient Patient admitted to: Observation With expected LOS: <2 Midnights Patient will require the following post-hospital care: None Practitioner: I am a practitioner with admitting privileges, knowledge of patient current condition, hospital course, and medical plan of care. Services: Services provided to patient in accordance with Admission requirements found in Title 42 Section 412.3 of the Code of Federal Regulations Patient History Date of Service: 06/26/22 Reason for admission: COPD Exacerbation History of Present Illness: Patient is a 71-year-old female with past medical history of COPD, hypertension, tobacco abuse, and generalized anxiety disorder who presented to the emergency department via EMS with complaints of shortness of breath. Patient states that she did not take her anxiety medication today and believes that is what initially set off the shortness of breath. She was saturating appropriately here however has persistently been tachypneic in the 30s. Her labs are unremarkable. CTA chest negative. ED provider wishes admit patient for observation for COPD exacerbation. Home medications list reviewed: Yes - Past Medical/Surgical History Diabetic: No -: Hypertension -: COPD -: Anxiety -: Cholecystectomy Psychosocial/ Personal History: Patient lives at home alone. - Family History Family History: Reviewed- Non-Contributory - Social History Smoking Status: Current every day smoker Alcohol use: No CD- Drugs: No Caffeine use: Yes Place of Residence: Home Review of Systems Respiratory: Shortness of Breath Physical Examination - Vital Signs Temperature: 98 F Blood Pressure: 108/63 Pulse: 98 Respirations: 30 Pulse Ox (%): 99 - Physical Exam General: Alert, In no apparent distress HEENT: Atraumatic, PERRLA, EOMI, Sclerae nonicteric Neck: Supple, 2+ carotid pulse no bruit, No LAD, Without JVD or thyroid abnormality Respiratory: Other (faint wheezing bilaterally) Cardiovascular: Regular rate/rhythm, Normal S1 S2 Gastrointestinal: Normal bowel sounds, No tenderness Musculoskeletal: No tenderness Integumentary: No rashes Neurological: Normal speech, Normal strength at 5/5 x4 extr, Normal tone, Normal affect - Studies Laboratory Data (last 24 hrs) 06/25/22 23:00: WBC 11.10 H, Hgb 14.6, Hct 43.8, Plt Count 235 06/25/22 23:00: Sodium 140, Potassium 4.1, BUN 18, Creatinine 1.09 H, Glucose 104 Assessment and Plan - Problems (Diagnosis) (1) COPD with acute exacerbation Current Visit: Yes Status: Acute (2) Hypertension Current Visit: Yes Status: Chronic Qualifiers: Hypertension type: primary hypertension Qualified Code(s): I10 - Essential (primary) hypertension (3) Generalized anxiety disorder Current Visit: Yes Status: Chronic (4) Tobacco abuse Current Visit: Yes Status: Chronic - Plan Patient is admitted for observation of COPD exacerbation. Monitor pulse oximetry. Patient has been persistently tachypneic. Anxiety likely contributing although she is calm during my assessment. Patient not requiring O2 although does occassionally desaturate to 89%. Supplemental O2 as needed. Breathing treatments as needed. No indication for antibiotics at this time. Tobacco cessation counseling. Monitor and replete electrolytes per protocol. Reconcile continue home medication. Lovenox for VTE prophylaxis. Full code. Discharge Plan: Home Plan to discharge in: 24 Hours - Advance Directives Does patient have a Living Will: No Does patient have a Durable POA for Healthcare: No - Code Status/Comfort Care Code Status Assessed: Yes Code Status: Full Code Physician Review: Patient Assessed, Agree with Above Assessment and Plan Critical Care: No Time Spent Managing Pts Care (In Minutes): 50
[2022-06-26 04:07] VITALS: BMI 23.5
[2022-06-26] MEDS ORDERED: ACETAMINOPHEN 500 MG TAB PO PRN (04:08)
[2022-06-26] MEDS ORDERED: ONDANSETRON 4 MG/2 ML VIAL IV PRN (04:08)
[2022-06-26] MEDS ORDERED: ALBUTEROL 2.5 MG/3 ML NEB SOL NEB PRN (05:00)
[2022-06-26] MEDS ORDERED: INFLUENZA VACCINE (for 6+ mo) 0.5 ML DOSE IMVAC ONE (08:00)
[2022-06-26] MEDS ORDERED: PNEUMOCOCCAL VACCINE 0.5 ML IMVAC ONE (08:00)
--- NOTE | 2022-06-26 10:26 | RAD REPORT ---
EXAM DESCRIPTION: RAD - Chest Single View - 06/25/2022 10:54 pm CLINICAL HISTORY: 71 years Female Cough COMPARISON: None TECHNIQUE: AP view of the chest was obtained. FINDINGS: Cardiac size is within normal limits. Central vessels are moderately increased. Prominent ascending aorta. No effusions bilaterally. Increased interstitial findings lung batista bilaterally. No consolidation. No pneumothorax. Calcified granuloma left upper lung. IMPRESSION: Bilateral interstitial infiltrates versus chronic change. Prior granulomatous disease. N o evidence for congestive heart failure. Electronically signed by: Henna Gardner MD 06/25/2022 11:13 PM FINISHED GOODS INSPECTOR Due to temporary technical issues with the PACS/Fluency reporting system, reports are being signed by the in house radiologists without review as a courtesy to insure prompt reporting. The interpreting radiologist is fully responsible for the content of the report.
[2022-06-26] MEDS: ENOXAPARIN 40 MG/0.4 ML SQ SCH (10:28)
--- NOTE | 2022-06-26 14:21 | EKG ---
Test Date: 2022-06-25 Test Time: 23:51:45 [place] Roofer: ADARSH MEASUREMENT RESULTS: Intervals: Rate: 110 RI: 170 QRSD: 84 QT: 362 QTc: 489 [place]: P: 61 RI: 170 QRS: 104 T: 74 INTERPRETIVE STATEMENTS: Sinus tachycardia Rightward axis Borderline ECG Compared to ECG 08/14/2020 14:27:04 Right-axis deviation now present Sinus rhythm no longer present Electronically Signed On 06-26-22 14:20:47 INTEGRATION LEAD by Keanu Hastings
--- NOTE | 2022-06-26 16:32 | RAD REPORT ---
EXAM DESCRIPTION: CT - Chest For Pe Angio - 06/26/2022 3:32 am CLINICAL HISTORY: Cough, rule out PE TECHNIQUE: Axial computed tomographic angiography images of the chest with intravenous contrast. S agittal and coronal reformatted images were created and reviewed. This CT exam was performed using one or more of the following dose reduction techniques: automated exposure control, adjustment of t he mA and/or kV according to patient size, and/or use of iterative reconstruction technique. MIP reconstructed images were created and reviewed. COMPARISON: CTA Chest dated 08/14/2020 FINDINGS: Artifacts: Motion artifact degrades image quality and limits evaluation of segmental and subsegmental vessels. Pulmonary arteries: No central pulmonary arterial filling defects. Aorta: Mild to moderate atherosclerotic disease. The thoracic aorta is tortuous. No thoracic ao rtic aneurysm. Lungs: Mild peripheral fibrotic changes. Scattered bilateral subsegmental atelectasis/pleural par enchymal scar. No mass. Pleural space: Unremarkable. No significant effusion. No pneumothorax. Heart: The heart is mildly enlarged. Coronary artery calcification. No significant pericardial effusion. No evidence of RV dysfunction. Bones/joints: Remote right clavicular and right-sided rib fractures. Multilevel spondylosis. No dislocation. Soft tissues: Unremarkable. Lymph nodes: Unremarkable. No enlarged lymph nodes. IMPRESSION: 1. Motion artifact degrades image quality and limits evaluation of segmental and subse gmental vessels. No central pulmonary embolic disease. 2. Other findings as above. Electronically signed by: Jose Alfredo Medellin MD 06/26/2022 1:10 AM ALLERGIST Due to temporary technical issues with the PACS/Fluency reporting system, reports are being signed by the in house radiologists without review as a courtesy to insure prompt reporting. The interpreting radiologist is fully responsible for the content of the report.
[2022-06-26 20:38] VITALS: O2SAT 96
[2022-06-27] MEDS: ENOXAPARIN 40 MG/0.4 ML SQ SCH (08:10)
[2022-06-27 08:29] VITALS: BP 100/56; TEMP 97.1
--- NOTE | 2022-06-27 09:01 | RAD REPORT ---
EXAM DESCRIPTION: RAD - Chest Single View - 06/27/2022 7:54 am CLINICAL HISTORY: pneumonia Chest pain. COMPARISON: Chest Single View dated 06/25/2022; Chest Single View dated 08/14/2020 FINDINGS: Portable technique limits examination quality. The lungs are mildly emphysematous but grossly clear. The heart is normal in size. Old right clavicul ar fracture. IMPRESSION: No acute intrathoracic process suspected.
== END 2022-06-27 10:55 | disposition home or self-care (01) ==
LOC: ER 22:17 → ERHOLD 06-26 02:21 → 2ND 06-26 08:28
PROVIDERS: ADMIT Hospitalist; ATTEND Hospitalist
DX: J44.1 Chronic obstructive pulmonary disease with (acute) exacerbation (principal); I10 Essential (primary) hypertension; F41.9 Anxiety disorder, unspecified; Z72.0 Tobacco use; Z20.822 Contact with and (suspected) exposure to COVID-19
CPT/HCPCS: 93005; 87040 ×2; 85025; 80048; 36415; 87077; 87186; 84484; 83880; 0240U; 71275; 71045 ×2; 94760 ×3; 96374; 99285; Q9967; J7614; J7613; J1650 ×2; J2930; 81003; 81015; G0378